=== PATIENT | female | born 1940 | race Caucasian/White ===

== ENCOUNTER 2017-06-13 12:23 | Emergency (ER) | payer MEDICARE ==
[~2017-06-13] VITALS: Ht 170.2 cm; Wt 87.1 kg
[2017-06-13] MEDS ORDERED: METOPROLOL SUC100 MG PO ×2 (12:40→13:34)
[2017-06-13] MEDS ORDERED: OMEPRAZOLE20 MG PO (12:41)
[2017-06-13] MEDS ORDERED: ASPIR 8181 MG PO (12:41)
[2017-06-13] MEDS ORDERED: FOSAMAX70 MG PO (12:43)
[2017-06-13] MEDS ORDERED: TIROSINT50 MCG PO (12:43)
--- NOTE | 2017-06-13 21:52 | EKG ---
[facility] [address] [facility] [place] [address] Signed Atrial fibrillation with rapid ventricular response Abnormal ECG No previous ECGs available Confirmed by SHENA LINDSAY MD [id number] on 06/13/2017 9:52:44 PM Electronically Signed By: SHENA LINDSAY MD 06/13/17 215 PATIENT NAME: ZAKIYA TOSCANO Electrocardiogram DATE OF : 44 PHYSICIAN: SHENA LINDSAY MD REPORT #: [id number] REPORT IS CONFIDENTIAL AND NOT TO BE RELEASED WITHOUT AUTHORIZATION
== END 2017-06-13 14:39 | disposition home or self-care (01) ==
LOC: ED 12:23
DX: I48.91 Unspecified atrial fibrillation (principal); I10 Essential (primary) hypertension; Z98.51 Tubal ligation status; Z79.899 Other long term (current) drug therapy; Z79.82 Long term (current) use of aspirin
CPT/HCPCS: 71046; 80053; 84484; 85025; 93005; 93010; 96374; 99284